=== PATIENT | female | born 1935 | race Caucasian/White ===

== ENCOUNTER → 2018-05-09 | Outpatient (CLI) | payer MEDICARE | END | disposition home or self-care (01) | LOC: CFH 09:03 | PROVIDERS: ATTEND Internal Medicine Hematology & Oncology | DX: Z13.820 Encounter for screening for osteoporosis (principal); M85.88 Other specified disorders of bone density and structure, other site; N95.9 Unspecified menopausal and perimenopausal disorder; D05.12 Intraductal carcinoma in situ of left breast | CPT/HCPCS: 77080 ==

== ENCOUNTER 2019-10-09 15:53 | Emergency (ER) | payer MEDICARE ==
[~2019-10-09] VITALS: Ht 154.9 cm; Wt 46.6 kg
[2019-10-09 15:58] VITALS: BP 172/69
[2019-10-09] MEDS ORDERED: AMLO10TA8 PO (16:20)
[2019-10-09] MEDS ORDERED: QUIN40TA15 PO (16:20)
[2019-10-09] MEDS ORDERED: SIMV20TA3 PO (16:27)
[2019-10-09] MEDS ORDERED: UBID100C41 PO (16:27)
[2019-10-09] MEDS ORDERED: ASCO125T PO (16:27)
[2019-10-09] MEDS ORDERED: CHOL10002 PO (16:27)
[2019-10-09] MEDS ORDERED: LETR2.5T PO (16:27)
[2019-10-09] MEDS ORDERED: POTA10TA5 PO (16:28)
--- NOTE | 2019-10-09 16:29 | NUR ---
FELL GETTING UP TO BATHROOM. HIT SHOULDER ON FLOOR. BRUISING AND PAIN LEFT SHOULDER. SENT BY CHRISTIANE. DENIES PAIN ANY OTHER PARTS OF BODY
== END 2019-10-09 17:40 ==
LOC: ED 17:34
DX: S42.032A Displaced fracture of lateral end of left clavicle, initial encounter for closed fracture (principal); W01.0XXA Fall on same level from slipping, tripping and stumbling without subsequent striking against object, initial encounter; Y93.89 Activity, other specified; Y92.092 Bedroom in other non-institutional residence as the place of occurrence of the external cause; Y99.8 Other external cause status
CPT/HCPCS: 99282